=== PATIENT | male | born 1985 | race Caucasian/White ===

== ENCOUNTER 2024-06-17 13:20 | Outpatient (CLI) | payer OTHER, SELFPAY ==
[2024-06-17 14:29] LABS: Potassium 5.1 mmol/L (3.4-5.0)
--- OUTSIDE RECORDS SUMMARY | 2024-06-25 00:11 | XMS_ITS | Clinical Summary ---
Author Organization [facility] [employer] Address [address] [place] [address] Care Team Providers Care Plate Maker [employer]inc Name Role Phone Onesimo Tan DO Primary Care Provider [phone] Source Comments [facility] [employer],non-owned Affiliates and Associated Physician Practices is amultiple site organization consisting of ambulatory clinics and hospital sitesin [place], [place]. This disclosure is being madepursuant to the Care Everywhere program and may not contain all information available regarding this patient. Last updated 18.[facility] [employer] Allergies No known active allergies Medications * Be aware that medications may not be up to date on this document. Alwaysverify current medications with the patient. Medication Sig Dispensed Refills Start Date End Date Status FLUVIRIN injection ADM 0.5ML IM UTD 0 03/31/2016 Active verapamil CR (Isoptin-SR) 120 MG tablet Take 1 (one) tablet by mouth once daily *for additional refills please call our office for appointment* 30 tablet 1 03/13/2022 Active Active Problems Problem Noted Date Diagnosed Date HTN (hypertension) Overview (11/17/2014): not on meds for it HOCM (hypertrophic obstructive cardiomyopathy) Immunizations Name Administration Dates Next Due INFLUENZA VACCINE, QUADR. (F LUZONE; FLULAVAL; FLUARIX; AFLURIA QUADRIVALENT; 6MO+), 0.5 ML (IIV4) 04/17/2022,04/17/2019,04/05/2017 Family History Medical History Relation Name Comments Hypertension Father Hypertension Mother Relation Name Status Comments Father Mother Social History Tobacco Use Types Packs/Day Years Used Date Smoking Tobacco: Never Alcohol Use Standard Drinks/Week Comments Yes 2.5 (1 standard drink = 0.6 oz p ure alcohol) Sex and Gender Information Value Date Recorded Sex Assigned at Not on file Gender Identity Not on file Sexual Orientation Not on file Last Filed Vital Signs Vital Sign Reading Time Taken Comments Blood Pressure 134/84 02/07/2021 1:30 PM CDT Pulse 68 02/07/2021 1:30 PM CDT Temperature 36.9 ??C (98.4 ??F) 02/07/2021 1:30 PM CD T Respiratory Rate 16 02/07/2021 1:30 PM CDT Oxygen Saturation 100% 02/07/2021 1:30 PM CDT Inhaled Oxygen Concentration - - Weight 82.6 kg (182 lb) 02/07/2021 1:30 PM CDT Height 175.3 cm (5' 9 ) 05/03/2015 3:27 PM [employer]IAL GR[employer]ER Body Mass Index 26.88 05/03/2015 3:27 PM [employer]EV[employer]IAL [employer] Plan of Treatment Health Maintenance Due Date Last Done Comments HIV SCREENING 01/21/1999 HEPATITIS C SCREENING 01/17/2002 DTAP/TDAP/TD VACCINES (1 - Tdap) 01/21/2003 HEPATITIS B VACCINE (1 of 3 - 19+ 3-dose series) 01/21/2003 LIPID TESTING 02/25/2016 02/24/2011 DEPRESSION SCREENING 06/25/2023 COVID-19 VACCINE ( - season) 2024 INFLUENZA VACCINE (#1) 2024 2, 04/05/2022, 04/06/2021, Additional history exists ZOSTER VACCINE (1 of 2) 01/21/2034 HIB VACCINE Aged Out No longer eligi ble based on patient's age to complete this topic HPV VACCINE Aged Out No longer eligi ble based on patient's age to complete this topic MENINGOCOCCAL VACCINE Aged Out No jose luis danie eligible based on patient's age to complete this topic PNEUMOCOCCAL VACCINE Aged Out No long er eligible based on patient's age to complete this topic Procedures Procedure Name Priority Date/Time Associated Diagnosis Comments LIPID PROFILE Routine 02/24/2011 1:20 AM CDT from Last 3 Months or Most Recently Relevant to Health Maintenance Results * LIPID PROFILE (02/24/2011 1:20 AM CDT) Cholesterol 141 <200 mg/dl [facility] Triglycerides 75 10 - 210 mg/dl [facility] HDL Cholesterol 46 >40 mg/dl [facility] LDL Calculated 80 mg/dl [facility] Chol HDL Ratio 3.07 [facility] Comment Lipid [facility] Comment: Risk Classification ? HDL CHOL ?? LDL CHOL ?TOTAL CHOL According to NCEP ? (mg/dl) ?(mg/dL) ?(mg/dl) ? Desirable ? >40 ?<130 ? < 200 ? Borderline/High ?- ?130-159 ?200-239 ? High ? - ? >159 ? > 239 The total cholesterol to HDL cholesterol ratio may be used to predict risk for coronary heart disease in untreated patients according to data reported from the [place] Study by Jaswinder Denney M.D. ??The predictive value in patients over 60 years of age is uncertain. ? Risk ?TOTAL CHOL/HDL RATIO ? MEN ?WOMEN ? 1/2 Average ? 3.43 ? 3.27 ? Average ? 4.97 ? 4.44 ? 2X Average ?9.55 ? 7.05 ? 3X Average ? 23.39 ?11.04 In Coronary Artery Disease patients, in whom nonpharmacological therapy has failed, the AHA recommends that drug therapy should be prescribed to lower LDL cholesterol to <100mg/dL. ??Drug therapy may be instituted in patients with HDL <35mg/dL. ??The reported LDL is a calculated result. ??For a more precise measurement, a direct LDL test is available, as necessary. BLOOD SPECIMEN / Unknown 02/24/2011 1:20 AM CDT 02/24/2011 1:47 AM CDT Deng Valle MD LAB - CHEMISTRY [facility] Organization Address City/State/[facility] Co de Phone Number [facility] [id number] [place] [address] from Last 3 Months or Most Recently Relevant to Health Maintenance Advance Directives * FULL RESUSCITATION (Latest Code Status on File) Date Activated Date Inactivated Comments 02/23/2011 6:20 PM 02/25/2011 7:07 AM Care Teams Plate Maker Zinc Relationship Specialty Start Date End Date Onesimo Tan DO PCP - General Internal Medicine 09/15/14
== END 2024-06-17 13:21 | disposition home or self-care (01) ==
LOC: ANHGOSHLAB 13:21
PROVIDERS: PCP Internal Medicine
DX: E87.5 Hyperkalemia (principal)
CPT/HCPCS: 36415; 84132